=== PATIENT | female | born 1955 | race Caucasian/White ===

== ENCOUNTER 2020-04-12 14:24 | Emergency (ER) | payer MEDICARE, MEDICAID ==
[2020-04-12 15:11] LABS: #Basophils 0.1 thou/uL (0.0-0.2); #Eosinphils 0.4 thou/uL (0.0-0.7); #Lymphocytes 2.1 thou/uL (1.20-3.40); #Monocytes 0.7 thou/uL (0.11-0.59); #Neutrophils 10.4 thou/uL (1.40-6.50); %Basophils 0.9 % (0.0-1.0); %Eosinophils 3.1 % (0.0-10.0); %Lymphocytes 15.2 % (21.0-51.0); %Monocytes 5.1 % (0.0-10.0); %Neutrophils 75.7 % (42.0-75.0); Hemoglobin 14.3 g/dL (12.0-16.0); Mean Corpuscular HGB CONC 30.5 g/dL (32.0-36.0); Mean Corpuscular Hemoglobin 28.7 pg (27.0-31.0); Mean Corpuscular Volume 94.2 fL (78.0-98.0); Mean Platelet Volume 8.7 fL (7.4-10.4); Platelet Count 256 thou/uL (130-400); RBC Distribution Width 13.7 % (11.5-14.5); Red Blood Cell (RBC) Count 4.97 mill/uL (4.20-5.40); White Blood Cell (WBC) Count 13.8 thou/uL (4.8-10.8)
[2020-04-12 15:24] LABS: ALT (SGPT) 13 U/L (8-55); AST (SGOT) 13 U/L (5-34); Albumin 4.2 g/dL (3.4-4.8); Alkaline Phosphatase 128 U/L (40-110); Anion Gap 14 mmol/L (10-20); BUN (Urea Nitrogen) 10 mg/dL (9.8-20.1); Bilirubin, Total 0.4 mg/dL (0.2-1.2); Calc. Creatinine Clearance 0 mL/min (70-130); Calcium 9.2 mg/dL (7.8-10.44); Carbon Dioxide 24 mmol/L (23-31); Chloride 101 mmol/L (98-107); Estimated GFR-MDRD 55; Glucose 110 mg/dL (80-115); Potassium 4.2 mmol/L (3.5-5.1); Protein, Total 7.2 g/dL (6.0-8.3); Sodium 135 mmol/L (136-145)
[2020-04-12] MEDS ORDERED: Ondansetron PF 4 MG/2 ML Vial ONE (16:18)
[2020-04-12] MEDS ORDERED: Aspirin Chewable 81 MG TAB ONE (16:18)
--- NOTE | 2020-04-12 17:46 | RAD ---
PORTABLE CHEST: 04/12/20 An AP portable film at 1513 is presented with no prior films available for comparison. The heart is normal in size for portable film. Faint calcification is seen in the aortic arch. The myrna ngs are clear with no infiltrate or effusion. There does appear to be a calcified granuloma in eithe r the base of the right upper lobe or superior portion of the right lower lobe. It measures about 9 m m in size and is of no real concern. IMPRESSION: No acute finding. POS: HOME
--- NOTE | 2020-04-12 18:01 | CT ---
CT OF THE BRAIN WITHOUT CONTRAST: 04/12/20 The ventricles are normal in size with no shift. No intracranial bleeding, mass, or sign of acute str naa was found. There is a very tiny calcific density at the anterior aspect of the third ventricle at the level of the anterior thalami. I doubt that this is a tiny colloid cyst and there is certainly n o ventricular dilation. Its significance is very doubtful. The skull is normal in appearance. The vis ible paranasal sinuses and mastoid air cells are clear. IMPRESSION: No acute intracranial findings. Preliminary report called to Dr. Kumar at 1520 on 04/12/20. POS: HOME
--- NOTE | 2020-04-12 18:04 | CT ---
CT ANGIO OF THE HEAD: 04/12/[address] of the head was done for evaluation of this patient with headaches and mental status change s. MIP reconstructed images were then obtained. Both internal carotid arteries fill normally and end at a normal appearing [place]. Each ant erior cerebral and middle cerebral artery perfuse normally and equally. Posterior cerebral arteries p erfuse normally. 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 It ends in both posterior cerebr als. The superior cerebellar arteries can be seen as well and both fill. The right PICA fills. The le ft PICA was difficult to see extremely well but does appear to fill. There were no areas of abnormal enhancement in the brain. IMPRESSION: Unremarkable CT angio of the head. Findings discussed with Dr. Kumar at 1719 on 04/12/20. POS: HOME
== END 2020-04-12 21:37 | disposition short-term general hospital (02) ==
LOC: BURERS 14:24
DX: I10 Essential (primary) hypertension (principal); F31.9 Bipolar disorder, unspecified; F17.210 Nicotine dependence, cigarettes, uncomplicated; Z79.899 Other long term (current) drug therapy
CPT/HCPCS: 36415; 70450; 70496; 71045; 80053; 84484; 85025; 93005; 96374; J2405

== ENCOUNTER 2022-12-23 13:47 | Emergency (ER) | payer MEDICARE, MEDICAID ==
[~2022-12-23 13:47] MED LIST: Iopamidol 370 76% 100 ML VIAL ONE
[2022-12-23 14:41] LABS: #Basophils 0.1 thou/uL (0.0-0.2); #Eosinphils 0.2 thou/uL (0.0-0.7); #Lymphocytes 1.5 thou/uL (1.20-3.40); #Monocytes 1.1 thou/uL (0.11-0.59); %Basophils 0.5 % (0.0-1.0); %Eosinophils 1.4 % (0.0-10.0); %Lymphocytes 9.5 % (21.0-51.0); %Monocytes 7.1 % (0.0-10.0); %Neutrophils 81.5 % (42.0-75.0); Hemoglobin 12.5 g/dL (12.0-16.0); Mean Corpuscular Hemoglobin 30.9 pg (27.0-31.0); Mean Corpuscular Volume 88.4 fl (78.0-98.0); Mean Platelet Volume 7.9 fL (7.4-10.4); Platelet Count 280 10x3/uL (130-400); RBC Distribution Width 12.3 % (11.5-14.5); Red Blood Cell (RBC) Count 4.03 mill/uL (4.20-5.40); White Blood Cell (WBC) Count 15.9 10x3/uL (4.8-10.8)
[2022-12-23 14:46] LABS: INR-International Normal Ratio 0.9; Prothrombin Time 12.7 sec (12.0-14.7)
[2022-12-23 14:58] LABS: ALT (SGPT) 17 U/L (8-55); AST (SGOT) 13 U/L (5-34); Albumin 4.2 g/dL (3.4-4.8); Alkaline Phosphatase 115 U/L (40-110); Anion Gap 11 mmol/L (10-20); BUN (Urea Nitrogen) 15 mg/dL (9.8-20.1); Bilirubin, Total 0.2 mg/dL (0.2-1.2); Calc. Creatinine Clearance 0 mL/min (70-130); Calcium 9.1 mg/dL (7.8-10.44); Carbon Dioxide 26 mmol/L (23-31); Chloride 97 mmol/L (98-107); Estimated GFR 51; Globulin 2.9 g/dL (2.4-3.5); Glucose 117 mg/dL (80-115); Lipase 12 U/L (8-78); Potassium 4.8 mmol/L (3.5-5.1); Protein, Total 7.1 g/dL (5.8-8.1); Sodium 129 mmol/L (136-145)
[2022-12-23] MEDS ORDERED: Ciprofloxacin 500 MG TAB ONE (16:20)
[2022-12-23] MEDS ORDERED: metroNIDAZOLE 250 MG TAB ONE (16:20)
== END 2022-12-23 16:36 | disposition home or self-care (01) ==
LOC: BURERS 13:47
DX: K52.9 Noninfective gastroenteritis and colitis, unspecified (principal); K62.5 Hemorrhage of anus and rectum; D72.829 Elevated white blood cell count, unspecified; I10 Essential (primary) hypertension; F17.210 Nicotine dependence, cigarettes, uncomplicated; Z79.899 Other long term (current) drug therapy
CPT/HCPCS: 36415; 74177; 80053; 83605; 83690; 85025; 85610; Q9967